=== PATIENT | female | born 1955 | race Caucasian/White ===

== ENCOUNTER → 2021-08-02 | Outpatient (CLI) | payer MEDICARE ==
--- NOTE | 2021-08-02 17:27 | RAD ---
Exam: Right finger 3 views INDICATION: Foreign body TECHNIQUE: Frontal view of the right hand with oblique and lateral views of the fifth digit Comparisons: None FINDINGS: There is a transverse fracture through the distal aspect of the distal phalanx fifth digit with mild surrounding soft tissue swelling. Overlying soft tissue irregularity is also noted. No other fracture s are seen. No radiopaque foreign body. Joint spaces are well-maintained. Bone mineralization is norm al. IMPRESSION: Transverse fracture through the distal aspect of the distal phalanx fifth digit with overlying lacera tion Electronically signed by: Patricia Gutiérrez MD (08/02/2021 5:25 PM) [facility]
== END ==
LOC: PMG 15:24
PROVIDERS: ATTEND Physician Assistant
DX: S69.91XA Unspecified injury of right wrist, hand and finger(s), initial encounter (principal); S61.216A Laceration without foreign body of right little finger without damage to nail, initial encounter; S62.636A Displaced fracture of distal phalanx of right little finger, initial encounter for closed fracture; X58.XXXA Exposure to other specified factors, initial encounter; Y93.89 Activity, other specified; Y92.89 Other specified places as the place of occurrence of the external cause; Y99.8 Other external cause status
CPT/HCPCS: 73140

== ENCOUNTER → 2021-09-12 | Outpatient (CLI) | payer MEDICARE ==
--- NOTE | 2021-09-12 17:24 | RAD ---
EXAM: Right small finger, 3 views. HISTORY: Fracture. COMPARISON: 08/02/2021 FINDINGS: 3 views of the right hand are obtained. There has been complete to near complete healing of a is redemonstrated fracture involving the distal aspect of the fifth distal phalanx. There is at le ast partial bony bridging across the prior fracture line. 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 There is no foreign body. IMPRESSION: Complete to near complete healing of a fifth distal phalanx fracture. Electronically signed by: Princess Rueda MD (09/12/2021 5:21 PM) [facility]
== END ==
LOC: RAD 09:12
PROVIDERS: ATTEND Physician Assistant
DX: S62.636D Displaced fracture of distal phalanx of right little finger, subsequent encounter for fracture with routine healing (principal); M19.041 Primary osteoarthritis, right hand; X58.XXXD Exposure to other specified factors, subsequent encounter
CPT/HCPCS: 73140